=== PATIENT | male | born 1990 | race Caucasian/White ===

== ENCOUNTER 2017-05-28 19:38 | Emergency (ER) | payer OTHER ==
[~2017-05-28] VITALS: Ht 177.8 cm; Wt 102.1 kg
[2017-05-28 20:30] LABS: MCH 31.8 PG (29.0-34.0); MCV 90.9 FL (86-99); PLATELET COUNT 231 K/uL (156-360); RBC DIS.WIDTH-CV 12.3 % (11.8-14.6); RBC DIS.WIDTH-SD 41.1 % (39-53); WHITE BLOOD COUNT 8.5 K/uL (4.1-10.2)
[2017-05-28 20:39] LABS: AMPHETAMINE PRESUMPTIVE POSITIVE (500 ng/mL); BARBITURATES NEGATIVE (200 ng/mL); BENZODIAZEPINES NEGATIVE (150 ng/mL); BUPRENORPHINE PRESUMPTIVE POSITIVE (10 ng/mL); COCAINE PRESUMPTIVE POSITIVE (150 ng/mL); METHADONE NEGATIVE (200 ng/mL); METHAMPHETAMINE PRESUMPTIVE POSITIVE (500 ng/mL); OPIATES (MORPHINE) PRESUMPTIVE POSITIVE (100 ng/mL); OXYCODONE NEGATIVE (100 ng/mL); PHENCYCLIDINE NEGATIVE (25 ng/mL); PROPOXYPHENE NEGATIVE (300 ng/mL); THC CANNABINOIDS PRESUMPTIVE POSITIVE (50 ng/mL); TRICYCLIC ANTIDEPRESSANTS NEGATIVE (300 ng/mL)
[2017-05-28 20:39] LABS: ALBUMIN 4.3 g/dL (3.2-4.8); CHLORIDE 105 mEq/L (99-109)
[2017-05-28 20:40] LABS: POTASSIUM 4.7 mEq/L (3.7-5.4); SODIUM 138 mEq/L (136-147)
[2017-05-28 20:42] LABS: GLUCOSE 88 mg/dL (70-99); TOTAL PROTEIN 8.4 g/dL (6.4-8.3)
[2017-05-28 20:44] LABS: TOTAL BILIRUBIN 0.6 mg/dL (0.0-1.0)
[2017-05-28 20:45] LABS: SERUM ETHYL ALCOHOL < 10 mg/dL
[2017-05-28 20:46] LABS: ALKALINE PHOSPHATASE 90 IU/L (3-129); CREATININE 0.8 mg/dL (0.6-1.3); GFR ESTIMATE (CALCULATED) > 59 mL/min/ (58.99-99999)
[2017-05-28 20:47] LABS: AST (GOT) 56 IU/L (2-34)
[2017-05-28 20:48] LABS: UREA NITROGEN (BUN) 11 mg/dL (9-23)
[2017-05-28 20:49] LABS: ALT (GPT) 86 IU/L (3-49); SALICYLATE < 5.0 MG/DL (15-30)
[2017-05-28 20:50] LABS: ACETAMINOPHEN (TYLENOL) < 10 mcg/mL (10-30)
[2017-05-28] MEDS ORDERED: ATARAX,VISTARIL25 MG PO (22:48)
[2017-05-28 22:50] VITALS: BP 132/78
== END 2017-05-28 22:52 | disposition home or self-care (01) ==
LOC: EME 19:38
PROVIDERS: Physician Assistant Medical
DX: F19.20 Other psychoactive substance dependence, uncomplicated (principal); B19.20 Unspecified viral hepatitis C without hepatic coma; F41.9 Anxiety disorder, unspecified; F32.9 Major depressive disorder, single episode, unspecified; F17.200 Nicotine dependence, unspecified, uncomplicated
CPT/HCPCS: 80053; 84999; 85027; 90839; 99281; 99284; G0480

== ENCOUNTER 2017-09-04 18:00 | Emergency (ER) | payer OTHER ==
[~2017-09-04] VITALS: Ht 182.9 cm; Wt 88.2 kg
[~2017-09-04 18:00] MED LIST: ATARAX,VISTARIL25 MG PO
[2017-09-04 19:16] VITALS: BP 136/84
== END 2017-09-04 19:22 | disposition home or self-care (01) ==
LOC: EME 18:00
DX: F19.10 Other psychoactive substance abuse, uncomplicated (principal); F41.9 Anxiety disorder, unspecified; F32.9 Major depressive disorder, single episode, unspecified; B19.20 Unspecified viral hepatitis C without hepatic coma; F17.200 Nicotine dependence, unspecified, uncomplicated
CPT/HCPCS: 80048; 81003; 85025; 99281; 99284; Q0177